=== PATIENT | male | born 1935 | race Caucasian/White ===

== ENCOUNTER 2019-12-28 | Emergency (ER) | payer MEDICARE ==
[~2019-12-28] MED LIST: ALEVE220 M2 PO; ASPIRIN81 MG PO; CEPHALEXIN500 MG OR; CINNAMON500 M1 PO; CO Q OR; DIGOXIN0.25 MG PO; FERROUS SUL1 PO; FISH OIL1000 MG OR; FLAXSEED OIL1000 MG PO; FUROSEMIDE40 MG PO; GLIPIZIDE10 MG PO; GLUCOSAMINE1000 MG PO; KEFLEX500 MG PO; KLOR-CON20 MEQ PO; LISINOPRIL5 MG PO; LOSARTAN POT50 MG PO; MAGNESIUM-OX400 MG PO; MENS MULTI VITAMIN & PO; METFORMIN500 M1 PO; METFORMIN500 MG PO; METOPROL TAR25 M1 PO; MULTIVITAMI9 PO; PRILOSEC20 MG/CAP PO; SIMVASTATIN80 MG PO; TRAMADOL HYDROC50 MG PO; VITAMIN D-3400 UNIT PO
[2019-12-28 10:21] LABS: GFR > 60 ML/MIN (>=60 (CALC)); GFR FOR AFR.AMER. > 60 ML/MIN (>=60 (CALC))
[2019-12-28 10:27] LABS: HEMOGLOBIN 13.4 g/dl (14.0-18.0); IMMATURE GRANULOCYTES 0.2 % (0.0-5.0); MEAN CELL VOLUME 87.7 fL CALC (80.0-100.0); MEAN CORPUSCULAR HGB CONC 31.9 g/dL CAL (32.0-36.0); NEUT# 3.04 thou/uL (1.82-7.42); RED BLOOD COUNT 4.79 mill/uL (4.70-6.10); RED CELL DISTRI WIDTH 13.8 % (11.5-15.5)
[2019-12-28 10:47] LABS: ALBUMIN 4.2 g/dL (3.2-5.0); ALKALINE PHOSPHATASE 73 u/l (38-126); ANION GAP 14 (6-22 (CALC)); BUN 11 mg/dL (8-23); BUN/CREATININE RATIO 15 (12-20 (CALC)); CARBON DIOXIDE 24 mmol/l (22-30); CHLORIDE 102 mmol/l (95-108); CREATININE 0.7 mg/dL (0.7-1.3); GFR > 60 ML/MIN (>=60 (CALC)); GFR FOR AFR.AMER. > 60 ML/MIN (>=60 (CALC)); INTERNATIONAL NORMALIZED RATIO 1.1 RATIO (0.7-1.3); POTASSIUM 4.3 mmol/l (3.5-5.1); SGOT/AST 27 u/l (19-48); SODIUM 135 mmol/l (137-146); TOTAL PROTEIN 7.5 g/dL (6.3-8.2)
[2019-12-28 10:54] LABS: BILIRUBIN, TOTAL 0.4 mg/dL (0.0-1.4)
== END 2019-12-28 11:21 | disposition short-term general hospital (02) ==
PROVIDERS: Family Medicine
DX: I63.9 Cerebral infarction, unspecified (principal); R27.0 Ataxia, unspecified; G83.14 Monoplegia of lower limb affecting left nondominant side; R29.701 NIHSS score 1; E11.9 Type 2 diabetes mellitus without complications; Z79.84 Long term (current) use of oral hypoglycemic drugs

== ENCOUNTER 2022-01-26 20:50 | Emergency (ER) | payer MEDICARE ==
[~2022-01-26] VITALS: Ht 162.6 cm; Wt 61.0 kg
[2022-01-26 21:04] VITALS: BP 132/76
[2022-01-26] MEDS ORDERED: METFORMIN HCL500 M2 PO (21:18)
[2022-01-26] MEDS ORDERED: LOSARTAN POTASS50 MG PO (21:19)
[2022-01-26] MEDS ORDERED: JANUVIA50 MG PO (21:19)
[2022-01-26] MEDS ORDERED: XARELTO10 MG PO (21:20)
[2022-01-26] MEDS ORDERED: IRON27 MG PO (21:21)
[2022-01-26] MEDS ORDERED: MILK OF MAG30 ML/UDC PO (21:21)
[2022-01-26] MEDS ORDERED: FIBER SUPPLEMENT (21:22)
[2022-01-26 21:30] VITALS: BP 124/68
[2022-01-26 21:44] LABS: HEMATOCRIT 39.5 % (39.0-50.0); HEMOGLOBIN 12.6 g/dl (14.0-18.0); IMMATURE GRANULOCYTES 0.2 % (0.0-5.0); MEAN CELL VOLUME 85.5 fL CALC (80.0-100.0); MEAN CORPUSCULAR HGB 27.3 pG CALC (26.0-32.0); MEAN CORPUSCULAR HGB CONC 31.9 g/dL CAL (32.0-36.0); NEUT# 4.61 thou/uL (1.82-7.42); RED BLOOD COUNT 4.62 mill/uL (4.70-6.10); RED CELL DISTRI WIDTH 14.4 % (11.5-15.5)
[2022-01-26 22:00] VITALS: BP 117/69
[2022-01-26 22:01] LABS: ALBUMIN 3.5 g/dL (3.2-5.0); ALKALINE PHOSPHATASE 101 u/l (38-126); AMYLASE 48 u/l (30-110); ANION GAP 12 (6-22 (CALC)); BILIRUBIN, TOTAL 0.3 mg/dL (0.0-1.4); BUN 14 mg/dL (8-23); BUN/CREATININE RATIO 21 (12-20 (CALC)); CARBON DIOXIDE 25 mmol/l (22-30); CHLORIDE 98 mmol/l (95-108); CREATININE 0.7 mg/dL (0.7-1.3); GFR > 60 ML/MIN (>=60 (CALC)); GFR FOR AFR.AMER. > 60 ML/MIN (>=60 (CALC)); POTASSIUM 4.2 mmol/l (3.5-5.1); SGOT/AST 29 u/l (19-48); SODIUM 131 mmol/l (137-146)
[2022-01-26 22:30] VITALS: BP 123/64
[2022-01-26 23:00] VITALS: BP 126/64
[2022-01-26 23:07] LABS: URINE BILIRUBIN - DIPSTICK NEGATIVE (NEGATIVE); URINE BLOOD DIPSTICK SMALL (NEGATIVE); URINE COLOR YELLOW; URINE GLUCOSE - DIPSTICK NEGATIVE (NEGATIVE); URINE KETONE NEGATIVE (NEGATIVE); URINE LEUK ESTERASE NEGATIVE (NEGATIVE); URINE NITRITE - DIPSTICK NEGATIVE (Negative); URINE PROTEIN - DIPSTICK NEGATIVE (NEG-TRACE); URINE UROBILINOGEN - DIPSTICK 0.2 E.U./dL (0.2)
[2022-01-26 23:10] LABS: URINE RBC 0-2 RBC/hpf (0-5)
[2022-01-26] MEDS ORDERED: GENTAMICIN SULF5 ML OU (23:29)
[2022-01-26 23:30] VITALS: BP 125/65
[2022-01-27] VITALS: BP 125/70
[2022-01-27 00:07] VITALS: BP 125/70
== END 2022-01-27 00:22 | disposition home or self-care (01) ==
LOC: ED 20:50
PROVIDERS: Emergency Medicine
DX: E11.65 Type 2 diabetes mellitus with hyperglycemia (principal); H10.9 Unspecified conjunctivitis; I10 Essential (primary) hypertension; I25.10 Atherosclerotic heart disease of native coronary artery without angina pectoris; Z79.84 Long term (current) use of oral hypoglycemic drugs; Z20.822 Contact with and (suspected) exposure to COVID-19

== ENCOUNTER 2024-06-07 14:08 | Emergency (ER) | payer MEDICARE ==
[~2024-06-07] VITALS: Ht 162.6 cm; Wt 64.0 kg
[2024-06-07] VITALS (11 sets, daily range): BP systolic 117–148; BP diastolic 61–88
[~2024-06-07 14:08] MED LIST changes: +FIBER SUPPLEMENT; +GENTAMICIN SULF5 ML OU; +IRON27 MG PO; +JANUVIA50 MG PO; +LOSARTAN POTASS50 MG PO; +METFORMIN HCL500 M2 PO; +MILK OF MAG30 ML/UDC PO; +XARELTO10 MG PO
[2024-06-07 15:04] LABS: BASO% 0.7 % (0-3); EOS% 4.9 % (0-8); IMMATURE GRANULOCYTES 0.1 % (0.0-5.0); LYMPH% 26.1 % (15-41); MEAN CELL VOLUME 91.5 fL CALC (80.0-100.0); MEAN CORPUSCULAR HGB 29.7 pG CALC (26.0-32.0); MEAN CORPUSCULAR HGB CONC 32.4 g/dL CAL (32.0-36.0); MONO% 10.3 % (2-13); NEUT# 3.87 thou/uL (1.82-7.42); NEUT% 57.9 % (42-76); RED BLOOD COUNT 4.45 mill/uL (4.70-6.10); RED CELL DISTRI WIDTH 13.2 % (11.5-15.5)
[2024-06-07 15:13] LABS: HEMATOCRIT 40.7 % (39.0-50.0); HEMOGLOBIN 13.2 g/dl (14.0-18.0)
[2024-06-07] MEDS ORDERED: LIDOCAINE W/ EPINEPHRINE 10 MG/ML INJ IJ ONE (16:00)
== END 2024-06-07 16:58 | disposition home or self-care (01) ==
LOC: ED 14:08
PROVIDERS: Family Medicine
PROC: 0HQ5XZZ Repair Chest Skin, External Approach (ICD-10-PCS; principal; 2024-06-07)
DX: L76.21 Postprocedural hemorrhage of skin and subcutaneous tissue following a dermatologic procedure (principal); E11.9 Type 2 diabetes mellitus without complications; I10 Essential (primary) hypertension; Y84.8 Other medical procedures as the cause of abnormal reaction of the patient, or of later complication, without mention of misadventure at the time of the procedure; Z95.1 Presence of aortocoronary bypass graft; Z85.828 Personal history of other malignant neoplasm of skin; Z79.01 Long term (current) use of anticoagulants; Z95.0 Presence of cardiac pacemaker; Z79.84 Long term (current) use of oral hypoglycemic drugs

== ENCOUNTER 2024-06-21 10:54 | Emergency (ER) | payer MEDICARE ==
[~2024-06-21] VITALS: Ht 162.6 cm; Wt 58.0 kg
[2024-06-21 11:13] VITALS: BP 157/76
[2024-06-21 11:16] VITALS: BP 138/85
[2024-06-21 11:31] VITALS: BP 126/62
== END 2024-06-21 11:45 | disposition home or self-care (01) ==
LOC: ED 10:54
DX: Z48.01 Encounter for change or removal of surgical wound dressing (principal); I10 Essential (primary) hypertension; E11.9 Type 2 diabetes mellitus without complications; Z79.84 Long term (current) use of oral hypoglycemic drugs